=== PATIENT | male | born 1955 | race Caucasian/White ===

== ENCOUNTER 2020-06-07 20:14 | Emergency (ER) | payer MEDICAID ==
[~2020-06-07] VITALS: Ht 170.2 cm; Wt 81.6 kg
[2020-06-07] MEDS ORDERED: LABETALOL 5MG/ML SYR 20 MG/4 ML SYRINGE IV ONE (21:15)
[2020-06-07] MEDS ORDERED: *NO ASPIRIN X 24 HOURS XX SCH (21:15)
[2020-06-07] MEDS ORDERED: IOHEXOL-350 100 ML BOTTLE ONE (21:24)
[2020-06-07 21:30] LABS: BASOPHILS % 0.8 % (0.0-2.0); EOSINOPHILS % 6.4 % (0.0-5.0); HEMATOCRIT. 48.6 % (42.0-52.0); HEMOGLOBIN. 16.5 g/dL (14.0-18.0); LYMPHOCYTES % 26.8 % (20.0-50.0); MEAN CORPUSCULAR HEMOGLOBIN 30.8 pg (28.0-32.0); MEAN CORPUSCULAR VOLUME 91.1 fL (80.0-94.0); MEAN PLATELET VOLUME 11.3 fl (7.4-10.4); MONOCYTES % 8.6 % (2.0-8.0); NEUTROPHILS % 57.4 % (40.0-76.0); PLATELET 128 x1000/uL (130-400); RED BLOOD CELL COUNT 5.34 mill/uL (4.7-6.1); RED CELL DISTRIBUTION WIDTH 14.4 % (11.6-14.6)
[2020-06-07] MEDS ORDERED: ALTEPLASE 100MG/VIAL IV NR (21:30)
[2020-06-07] MEDS ORDERED: ALTEPLASE IV NR (21:30)
[2020-06-07 21:37] LABS: CHLORIDE 108 mEq/L (98-107)
[2020-06-07 21:42] LABS: PARTIAL THROMBOPLASTIN TIME 26.5 sec (23.4-31.0); PROTHROMBIN TIME 11.2 sec (9.6-11.0)
[2020-06-07 21:45] LABS: ETHANOL BLOOD < 10 mg/dL
[2020-06-07 21:47] LABS: LDL CHOLESTEROL 76 mg/dL (5-100)
[2020-06-07 21:49] LABS: CLARITY URINE CLEAR (CLEAR); COLOR URINE YELLOW (YELLOW); KETONES URINE NEGATIVE (NEGATIVE); LEUKOCYTE ESTERASE URINE NEGATIVE (NEGATIVE); NITRITE URINE POSITIVE (NEGATIVE); OCCULT BLOOD URINE 2+ (NEGATIVE); PH URINE 6.5 (4.5-8.0); PROTEIN URINE 1+ (NEGATIVE); SPECIFIC GRAVITY URINE 1.025 (1.005-1.030); UROBILINOGEN URINE 0.2 E.U./dL (0.2-1.0)
[2020-06-07 22:02] LABS: *AMPHETAMINES SCREEN URINE NEGATIVE (NEGATIVE); *BARBITURATES SCREEN URINE NEGATIVE (NEGATIVE); *BENZODIAZEPINES SCREEN URINE NEGATIVE (NEGATIVE); *COCAINE SCREEN URINE NEGATIVE (NEGATIVE); CANNABINOID URINE SCREEN NEGATIVE (NEGATIVE); METHADONE URINE SCREEN NEGATIVE (NEGATIVE); OPIATES URINE SCREEN NEGATIVE (NEGATIVE); PHENCYCLIDINE URINE SCREEN NEGATIVE (NEGATIVE)
[2020-06-07] MEDS ORDERED: CEFTRIAXONE 1 G PREMIX 50 ML IV ONE (22:15)
[2020-06-07] MEDS ORDERED: AZITHROMYCIN 500 MG in DEXT 5% WATER 250 ML IV ONE (22:15)
[2020-06-07 23:06] VITALS: BP 159/101
== END 2020-06-07 23:15 | disposition short-term general hospital (02) ==
LOC: ER 20:14 → CANBEDREQ 06-08 05:51
DX: I63.9 Cerebral infarction, unspecified (principal); N39.0 Urinary tract infection, site not specified; Z20.822 Contact with and (suspected) exposure to COVID-19; Z98.890 Other specified postprocedural states
CPT/HCPCS: 36415; 37195; 70450; 70496; 70498; 71045; 80053; 80305; 80320; 81003; 83721; 83880; 84484; 85025; 85610; 85730; 86850; 86900; 86901; 87077; 87086; 87186; 93005; 96365; 96367; 96375; 99285; C9803; J0456; J0696; J2997; J3490; J7060; Q9967; U0003; Z7610; G0480